=== PATIENT | female | born 1985 | race Hispanic/Latino ===

== ENCOUNTER 2021-05-01 22:39 | Inpatient (IN) | payer MEDICAID ==
[~2021-05-01] VITALS: Ht 147.3 cm; Wt 72.1 kg
[2021-05-01] MEDS ORDERED: PROMETHAZINE HCL 25 MG/ML 1ML AMPULE IM PRN (23:00)
[2021-05-01] MEDS ORDERED: ROPIVACAINE 0.2% 100ML VIAL 100 ML EP PRN (23:00)
[2021-05-01] MEDS ORDERED: MEPERIDINE-PF 50 MG/ML SYG IVP PRN (23:00)
[2021-05-01] MEDS ORDERED: NALOXONE HCL 0.4 MG/1 ML ML IV PRN (23:00)
[2021-05-01] MEDS ORDERED: EPHEDRINE SULFATE 50 MG/ML AMPULE IVP PRN (23:00)
[2021-05-01] MEDS ORDERED: LACTATED RINGERS 1000ML 1,000 ML IV PRN (23:00)
[2021-05-01] MEDS ORDERED: LACTATED RINGERS 500 ML 500 ML IV PRN (23:00)
[2021-05-01 23:13] LABS: BILIRUBIN,URINE Negative (NEGATIVE); COLOR,URINE Yellow (YELLOW); GLUCOSE, URINE (UA) Negative (NEGATIVE); KETONES,URINE Negative (NEGATIVE); LEUKOCYTE ESTERASE ,URINE Large (NEGATIVE); NITRATE,URINE Negative (NEGATIVE); OCCULT BLOOD,URINE Negative (NEGATIVE); PROTEIN,URINE Trace mg/dL (NEGATIVE)
[2021-05-01 23:15] LABS: APPEARANCE,URINE CLOUDY (CLEAR)
[2021-05-01 23:19] LABS: AMORPHOUS SEDIMENT,UR Moderate /LPF (None Seen); BACTERIA,URINE Moderate /HPF (None Seen); MUCUS,URINE None Seen LPF (None Seen); RBC,URINE None Seen /HPF (0-1); SQUAMOUS EPITHELIAL CELL,UR Moderate /HPF (0-2)
[2021-05-02 00:01] LABS: HEMATOCRIT 37.4 % (36-48); MEAN CORPUSCULAR HEMOGLOBIN 32.9 pg (27.0-33.0); MEAN CORPUSCULAR HGB CONC 34.8 g/dL (32.0-36.0); MEAN CORPUSCULAR VOLUME 94.7 fL (79-99); RED BLOOD CELL COUNT(AUTO) 3.95 MIL/uL (4.00-5.50); RED CELL DISTRIBUTION WIDTH 13.2 % (11.0-15.5)
[2021-05-02] MEDS ORDERED: PREN1TAB80 PO (00:39)
[2021-05-02] MEDS ORDERED: FERR-82 PO (00:39)
[2021-05-02] MEDS ORDERED: MV-M1TAB20 PO (00:40)
[2021-05-02 00:41] VITALS: BP 100/57
[2021-05-02 00:49] LABS: AMPHET/METH SCREEN,URINE NEGATIVE (NEGATIVE); BARBITURATE SCREEN, URINE NEGATIVE (NEGATIVE); BENZODIAZEPINES SCREEN,URINE NEGATIVE (NEGATIVE); CANNABINOID SCREEN,URINE POSITIVE (NEGATIVE); COCAINE SCREEN,URINE NEGATIVE (NEGATIVE); OPIATE SCREEN,URINE NEGATIVE (NEGATIVE); PHENCYCLIDINE SCREEN,URINE NEGATIVE (NEGATIVE)
[2021-05-02] MEDS ORDERED: OXYTOCIN-LR 20 UNITS/1000 ML 1,000 ML IV ONE (03:49)
[2021-05-02] MEDS ORDERED: OXYTOCIN-LR 20 UNITS/1000 ML 1,000 ML IV SCH (04:00)
[2021-05-02] MEDS ORDERED: LACTATED RINGERS 1000ML 1,000 ML IV ONE (04:31)
[2021-05-02] MEDS ORDERED: LIDOCAINE HCL 1% 20 ML VIAL ONE (08:44)
[2021-05-02] MEDS ORDERED: CEFAZOLIN SODIUM 1 GM VIAL ONE (14:51)
[2021-05-02] MEDS ORDERED: CALDOLOR 800MG+NS 250ML 250 ML IV ONE (14:51)
[2021-05-02] MEDS ORDERED: CEFAZOLIN SODIUM 1 GM VIAL IVP PRN (15:00)
[2021-05-02] MEDS ORDERED: MORPHINE PF 100MG/10ML AMP IV ONE (15:09)
[2021-05-02] MEDS ORDERED: EPHEDRINE SULFATE 50 MG/ML AMPULE ONE (15:18)
[2021-05-02] MEDS ORDERED: ONDANSETRON 4MG INJ ONE (15:20)
[2021-05-02] MEDS ORDERED: PROPOFOL 10 MG/ML 20ML VIAL IV ONE (15:22)
[2021-05-02] MEDS ORDERED: OXYTOCIN-LR 20 UNITS/1000 ML 1,000 ML IV PRN (15:30)
[2021-05-02] MEDS ORDERED: PROMETHAZINE HCL 25 MG/ML 1ML AMPULE IM PRN (15:30)
[2021-05-02] MEDS ORDERED: 0.9%NACL 10ML VIAL IVP PRN (15:30)
[2021-05-02] MEDS ORDERED: OXYTOCIN 10 USP UNITS/ML ONE (15:33)
[2021-05-02] MEDS ORDERED: NALOXONE HCL 0.4 MG/1 ML ML IVP PRN ×3 (17:00)
[2021-05-02] MEDS ORDERED: CALDOLOR 800MG+NS 250ML 250 ML IV PRN (17:00)
[2021-05-02] MEDS ORDERED: ONDANSETRON 4MG INJ IVP PRN (17:00)
[2021-05-02] MEDS ORDERED: EPHEDRINE SULFATE 50 MG/ML AMPULE IVP PRN (17:00)
[2021-05-02] MEDS ORDERED: DiphenhydrAMINE HCL 50 MG/ML VIAL IVP PRN (17:00)
[2021-05-02 21:08] VITALS: BP 123/69
[2021-05-02 22:43] VITALS: BP 110/68
[2021-05-03] MEDS: DEXTROSE 5 %-0.45 % NACL 1,000 ML IV PRN ×2 (00:26→05:29)
[2021-05-03 03:13] VITALS: BP 116/51
[2021-05-03 07:20] VITALS: BP 104/54
[2021-05-03] MEDS ORDERED: HYDROCODONE/ACETAMINOPHEN 5/325 MG TAB PO PRN (07:30)
[2021-05-03] MEDS ORDERED: ACETAMINOPHEN WITH CODEINE 1 TAB TAB PO PRN (07:30)
[2021-05-03] MEDS ORDERED: ACETAMINOPHEN 500 MG TABLET PO PRN (07:30)
[2021-05-03] MEDS ORDERED: LANOLIN 30GM OINTMENT TP PRN (07:30)
[2021-05-03] MEDS ORDERED: BISACODYL 10 MG SUPP.RECT RC PRN (07:30)
[2021-05-03 07:39] LABS: HEMATOCRIT 28.3 % (36-48); MEAN CORPUSCULAR HEMOGLOBIN 32.9 pg (27.0-33.0); MEAN CORPUSCULAR HGB CONC 34.3 g/dL (32.0-36.0); MEAN CORPUSCULAR VOLUME 95.9 fL (79-99); RED BLOOD CELL COUNT(AUTO) 2.95 MIL/uL (4.00-5.50); RED CELL DISTRIBUTION WIDTH 13.3 % (11.0-15.5); WHITE BLOOD COUNT (AUTO) 13.7 K/uL (4.8-10.8)
[2021-05-03] MEDS: DOCUSATE SODIUM 100 MG CAP PO SCH ×2 (08:41→20:53)
[2021-05-03] MEDS: SIMETHICONE 80 MG TAB.CHEW PO PRN ×3 (08:41→20:53)
[2021-05-03] MEDS: IBUPROFEN 800 MG TAB PO SCH ×3 (08:42→23:09)
[2021-05-03] MEDS ORDERED: MEASLES/MUMPS/RUBELLA VACCINE, LIVE 0.5 ML/VIAL SQ SCH (10:00)
[2021-05-03 11:28] VITALS: BP 119/66
[2021-05-03 15:11] LABS: HEPATITIS Bs ANTIGEN SCREEN P Negative (Negative)
[2021-05-03] MEDS ORDERED: IBUP-2077 PO (16:01)
[2021-05-03] MEDS ORDERED: DOCU-116 PO (16:01)
[2021-05-03 16:02] VITALS: BP 122/67
[2021-05-03] MEDS ORDERED: ACET1TAB25 PO (16:02)
[2021-05-03 19:30] VITALS: BP 121/90
[2021-05-03 23:15] VITALS: BP 134/84
[2021-05-04 03:05] VITALS: BP 104/56
[2021-05-04] MEDS: DOCUSATE SODIUM 100 MG CAP PO SCH (08:04)
[2021-05-04] MEDS: IBUPROFEN 800 MG TAB PO SCH (08:05)
[2021-05-04 08:20] VITALS: BP 116/68
== END 2021-05-04 12:40 | disposition home or self-care (01) | DRG 540 ==
LOC: LDH 22:39 → WSH 05-02 21:05
PROVIDERS: ADMIT Obstetrics & Gynecology; ATTEND Obstetrics & Gynecology
PROC: 3E033VJ Introduction of Other Hormone into Peripheral Vein, Percutaneous Approach (ICD-10-PCS; 2021-05-02)
PROC: 10907ZC Drainage of Amniotic Fluid, Therapeutic from Products of Conception, Via Natural or Artificial Opening (ICD-10-PCS; 2021-05-02)
PROC: 10D00Z1 Extraction of Products of Conception, Low, Open Approach (ICD-10-PCS; principal; 2021-05-02 15:00)
PROC: 3E0134Z Introduction of Serum, Toxoid and Vaccine into Subcutaneous Tissue, Percutaneous Approach (ICD-10-PCS; 2021-05-03)
DX: O32.4XX0 Maternal care for high head at term, not applicable or unspecified (principal); F41.9 Anxiety disorder, unspecified; O99.52 Diseases of the respiratory system complicating childbirth; J45.909 Unspecified asthma, uncomplicated; O99.344 Other mental disorders complicating childbirth; O69.1XX0 Labor and delivery complicated by cord around neck, with compression, not applicable or unspecified; Z37.0 Single live birth; Z3A.38 38 weeks gestation of pregnancy; Z23 Encounter for immunization; Z86.16 Personal history of COVID-19
CPT/HCPCS: 36415; 59510; 80305; 81001; 82120; 85027; 86592; 86850; 86900; 86901; 87088; 87340; 90707; A4314; A4344; A4351; G0378; J0690; J1741; J2175; J2274; J2405; J2550; J2590; J2704; J2795; J3490; J7120

== ENCOUNTER 2023-04-30 10:47 | Observation (INO) | payer MEDICAID ==
[~2023-04-30] VITALS: Ht 147.3 cm; Wt 64.4 kg
[~2023-04-30 10:47] MED LIST: ACET-2079 PO; DOCU-116 PO; FERR-82 PO; IBUP-2077 PO; PREN1TAB80 PO
[2023-04-30] MEDS ORDERED: CELESTONE SOLUSPAN 6 MG/ML 5ML VIAL IM SCH (11:00)
== END 2023-04-30 11:45 | disposition home or self-care (01) ==
LOC: LDH 10:47
PROVIDERS: ADMIT Obstetrics & Gynecology; ATTEND Obstetrics & Gynecology
DX: Z34.83 Encounter for supervision of other normal pregnancy, third trimester (principal); Z3A.34 34 weeks gestation of pregnancy
CPT/HCPCS: 76819; 96372; G0379; G0378